=== PATIENT | male | born 1970 | race Caucasian/White ===

== ENCOUNTER 2023-01-06 11:15 | Emergency (ER) | payer OTHER, SELFPAY ==
[2023-01-06 11:23] VITALS: BP 146/90; PULSE 67; RESP 18; TEMP 36.7; O2SAT 99; BMI 24.7
--- NOTE | 2023-01-06 11:28 | DI.RAD.S_ITS ---
PROCEDURE: XR FEMUR LT MIN 2V INDICATIONS: atraumatic pain femur / tib fib TECHNIQUE: 2 views of the femur were acquired. COMPARISON: None. FINDINGS: Bones: No fractures or dislocations. No suspicious bony lesions. Soft tissues: No suspicious soft tissue calcifications or masses. IMPRESSION: No acute fracture. No osseous lesion. If symptoms and/or clinical suspicion for pathology persist, further assessment with repeat, or advanced imaging (e.g., CT, MRI, or bone scan) may be helpful for further assessment. Dictated by: Colton Herrmann M.D. on 01/06/2023 at 12:06 Approved by: Colton Herrmann M.D. on 01/06/2023 at 12:06
--- NOTE | 2023-01-06 11:28 | DI.RAD.S_ITS ---
PROCEDURE: XR TIBIA FIBULA LT 2V INDICATIONS: atraumatic pain femur / tib fib TECHNIQUE: 2 views of the tibia and fibula were acquired. COMPARISON: None. FINDINGS: Bones: No fractures or dislocations. No suspicious bony lesions. Soft tissues: No suspicious soft tissue calcifications or masses. IMPRESSION: No acute fracture. No osseous lesion. If symptoms and/or clinical suspicion for pathology persist, further assessment with repeat, or advanced imaging (e.g., CT, MRI, or bone scan) may be helpful for further assessment. Dictated by: Colton Herrmann M.D. on 01/06/2023 at 12:07 Approved by: Colton Herrmann M.D. on 01/06/2023 at 12:08
[2023-01-06 12:27] VITALS: PULSE 70
--- NOTE | 2023-01-06 13:44 | ED.EXTPRO ---
HPI - Extremity Problem <Magui Bishop PA-C - Last Filed: 01/06/23 13:51> General Chief complaint: Extremity Problem,Nontraumatic Stated complaint: pain in LT leg T-30 Time Seen by Provider: 01/06/23 13:35 Source: patient Mode of arrival: Ambulatory History of Present Illness HPI Narrative: 53-year-old male with past medical history BPH presents to the ED with 6 weeks of left leg pain. Patient denies numbness, tingling, weakness. Patient describes the pain as being in his femur and calf. Patient was seen by his primary care provider, D-dimer was negative. Patient was prescribed pain medication by his PCP, patient does not recall what the medication was, but that the PCP told him that it was the strongest medication she could give him. Patient states that the medication did not help him. Patient also took some Advil without much relief. Patient states he is able to walk, however after walking 1/4 mi, the pain worsens. Patient also has a MRI scheduled for 01/12/2023. Patient denies trauma. Related Data Home Medications Medication Instructions Recorded Confirmed valacyclovir 500 mg tablet 500 mg PO BID ##0 09/05/10 10/16/22 Previous Rx's Medication Instructions Recorded tamsulosin 0.4 mg capsule 0.4 mg PO BEDTIME #90 caps 09/10/22 cyclobenzaprine 10 mg tablet 10 mg PO TID PRN muscle spasm 5 01/06/23 days #15 tabs Allergies Allergy/AdvReac Type Severity Reaction Status Date / Time No Known Drug Allergies Allergy Verified 01/06/23 11:26 Review of Systems <Magui Bishop PA-C - Last Filed: 01/06/23 13:51> Review of Systems ROS Unobtainable: All systems reviewed & are unremarkable except as noted in HPI and below Constitutional Constitutional: Denies chills, Denies fatigue, Denies fever(s), Denies frequent falls, Denies lethargy and Denies weakness Eyes Eyes: Denies change in vision, Denies eye discharge, Denies irritation and Denies loss of vision ENT Ears, Nose, Mouth, and Throat: Denies change in voice, Denies dizziness, Denies neck pain, Denies sore throat and Denies throat swelling Cardiovascular Cardiovascular: Denies chest pain, Denies irregular heart rhythm, Denies lightheadedness, Denies palpitations, Denies dyspnea, Denies dyspnea on exertion and Denies orthopnea Respiratory Respiratory: Denies cough, Denies dyspnea, Denies dyspnea on exertion and Denies wheezing Gastrointestinal Gastrointestinal: Denies abdominal pain, Denies change in bowel habits, Denies diarrhea, Denies nausea and Denies vomiting Genitourinary Genitourinary: Denies hematuria, Denies flank pain, Denies urinary incontinence and Denies urinary urgency Musculoskeletal Musculoskeletal: Denies back pain, Denies muscle weakness, Denies neck pain, Denies numbness and Denies tingling Comments: Left femur and calf pain Integumentary/Breasts Skin/Breast: Denies pruritus, Denies erythema, Denies rash and Denies wounds Neurologic Neurologic: Denies behavioral changes, Denies confusion, Denies dizziness, Denies frequent falls, Denies loss of vision, Denies numbness, Denies tingling and Denies weakness Psychiatric Psychiatric: Denies anxiety, Denies behavioral changes, Denies confusion, Denies depression, Denies homicidal ideation and Denies suicidal ideation Endocrine Endocrine: Denies fatigue, Denies flushing and Denies palpitations Hematologic/Lymphatic Hematologic/Lymphatic: Denies easy bruising Allergic/Immunologic Allergic/Immunologic: Denies urticaria, Denies throat swelling and Denies wheezing Patient History <Magui Bishop PA-C - Last Filed: 01/06/23 13:51> Medical History BPH w urinary obs/LUTS Hematuria Family History Mother Cancer Social History marital status: number of children: 1 Smoking Status: Never smoker Smoking Status: Never smoker alcohol intake frequency: 0-2 drinks per day Substance Use Type: does not use Exam <Magui Bishop PA-C - Last Filed: 01/06/23 13:51> Narrative Exam Narrative: Const General:?cooperative, healthy appearing and comfortable [facility] Head:?normal to inspection Ears:?hearing grossly normal bilaterally Nose:?external nose normal Face and sinus:?normal facial exam and sinuses nontender Mouth:?oral mucosae normal Throat:?posterior oropharynx normal Eyes General:?appearance normal, both eyes and all related structures Neck Neck:?normal visual inspection and no lymphadenopathy noted Resp Effort & Inspection:?normal respiratory effort Auscultation:?clear to auscultation bilaterally Cardio Rate:?regular rate Rhythm:?regular rhythm Musculoskeletal No tenderness to palpation of left leg. No erythema, swelling, deformities. Strength and sensation is intact. Full range of motion. Patient is neurovascularly intact. Neuro General:?patient alert, patient awake and patient oriented x3 Initial Vital Signs Initial Vital Signs: Vital Signs Temperature 98.1 F 01/06/23 11:23 Pulse Rate 67 01/06/23 11:23 Respiratory Rate 18 01/06/23 11:23 Blood Pressure 146/90 H 01/06/23 11:23 Pulse Oximetry 99 01/06/23 11:23 Oxygen Delivery Method Room Air 01/06/23 11:23 <Pamella Smith DO - Last Filed: 01/07/23 07:44> Initial Vital Signs Initial Vital Signs: Vital Signs Temperature 98.1 F 01/06/23 11:23 Pulse Rate 67 01/06/23 11:23 Respiratory Rate 18 01/06/23 11:23 Blood Pressure 146/90 H 01/06/23 11:23 Pulse Oximetry 99 01/06/23 11:23 Oxygen Delivery Method Room Air 01/06/23 11:23 Course <Magui Bishop PA-C - Last Filed: 01/06/23 13:51> Orders Ordered: ED Orders 01/06/23 11:28 XR femur LT min 2V Stat XR tibia fibula LT 2V Stat Vital Signs Vital signs: Vital Signs - 8 hr 01/06/23 11:23 01/06/23 12:27 Temperature 98.1 F Pulse Rate 67 Pulse Rate [Left Dorsalis Pedis] 70 Respiratory Rate 18 Blood Pressure 146/90 H Pulse Oximetry 99 Oxygen Delivery Method Room Air <DO Alton Mensah Last Filed: 01/07/23 07:44> Orders Ordered: ED Orders 01/06/23 11:28 XR femur LT min 2V Stat XR tibia fibula LT 2V Stat Vital Signs Vital signs: Vital Signs - 8 hr 01/06/23 11:23 01/06/23 12:27 Temperature 98.1 F Pulse Rate 67 Pulse Rate [Left Dorsalis Pedis] 70 Respiratory Rate 18 Blood Pressure 146/90 H Pulse Oximetry 99 Oxygen Delivery Method Room Air MDM - Extremity (Nontraumatic) <Magui Bishop PA-C - Last Filed: 01/06/23 13:51> MDM Narrative Medical decision making narrative: 53-year-old male with past medical history BPH presents to the ED with 6 weeks of left leg pain. Concern for fracture/dislocation versus musculoskeletal sprain/strain versus other. Reassuring that recent D-dimer was negative, unlikely DVT. Left leg x-rays obtained with no acute findings. Patient's symptoms are likely due to a musculoskeletal sprain/strain. Will prescribe muscle relaxant to take along with Tylenol or ibuprofen. Patient agrees to follow-up with the MRI and his PCP for further evaluation treatment. ED return precautions were discussed with patient. Patient verbalized understanding. Medical records reviewed: Yes Discharge Plan Departure Patient Disposition: Home Clinical Impression: Leg pain Instructions: DI for Leg Pain Activity Restrictions/Additional Instructions: You were evaluated in the ED today for left leg pain. Your x-rays were normal. It appears that your D-dimer was also negative per your primary care doctor. You may continue to take Tylenol, ibuprofen for your symptoms. You were also being prescribed a muscle relaxant. It appears that you have an MRI scheduled for this coming Friday. Please keep that appointment and follow-up with your PCP as soon as possible. Return to the ED if you experience any numbness, tingling, weakness, worsening symptoms. Prescriptions: New cyclobenzaprine 10 mg tablet 10 mg PO TID PRN (Reason: muscle spasm) 5 Days Qty: 15 0RF No Action valacyclovir 500 MG tablet 500 mg PO BID Qty: 0 tamsulosin 0.4 mg capsule 0.4 mg PO BEDTIME Qty: 90 3RF Referrals: Leigh Baron PA-C [Primary Care Provider] - Stand Alone Forms: Patient Portal/API <Pamella Smith DO - Last Filed: 01/07/23 07:44> Cosign ED Attending [place] Attestation: I was immediately available in the department for consultation. Documentation has been reviewed.
== END 2023-01-06 13:49 | disposition home or self-care (01) ==
PROVIDERS: Emergency Provider Student in an Organized Health Care Education/Training Program; PCP Physician Assistant Medical
DX: M79.605 Pain in left leg (principal)
CPT/HCPCS: 73552; 73590; 99283

== ENCOUNTER → 2023-04-16 11:33 | Outpatient (CLI) | payer OTHER, SELFPAY ==
--- NOTE | 2023-04-16 | DI.MRI.S_ITS ---
PROCEDURE: MR LUMBAR SPINE WO CON INDICATIONS: RADICULOPATHY,LUMBAR REGION TECHNIQUE: Noncontrast sagittal T1 spin echo and T2 fast echo, sagittal STIR, and T2 fast spin echo through the lumbar spine. In cases with scoliosis, additional coronal T2 fast spin echo may be performed. COMPARISON: [facility], RG, CT IVP, 06/24/2022, 10:50. FINDINGS: Image quality: Excellent. Alignment and Curvature: There is normal bony alignment. Bone Marrow: Marrow is of normal overall signal. No acute vertebral body compression fractures. Spinal Cord: Conus medullaris terminates at the L1-L2 level. Visualized cord demonstrates normal signal and size. Paraspinous Soft Tissues: No paravertebral masses. T12-L1: Normal appearance. L1-L2: Normal appearance. L2-L3: Normal appearance. L3-L4: The disc height and disk signal are relatively well-preserved. Mild generalized disc bulge is seen. There is mild right-sided and no left-sided neural foraminal narrowing. No central canal narrowing is seen. L4-L5: Mild loss of disc height is seen. Loss of disc signal is seen. Mild generalized disc bulge is seen. Mild facet joint hypertrophy is seen. Moderate bilateral neural foraminal narrowing is seen. No central canal narrowing is seen. L5-S1: Moderate loss of disc height is seen. Loss of disc signal is seen. Mild generalized disc bulge is seen. There is a superimposed central disc protrusion. Mild facet joint hypertrophy is seen. There is moderate to severe left-sided and moderate right-sided neural foraminal narrowing. Minimal central canal narrowing is seen. IMPRESSION: Multiple levels of lumbar spine degenerative change can be seen, which are worst inferiorly. Dictated by: Aroldo Enamorado M.D. on 04/16/2023 at 16:37 Approved by: Aroldo Enamorado M.D. on 04/16/2023 at 16:40
== END ==
PROVIDERS: PCP Physician Assistant Medical; Referring Provider Physician Assistant Medical; Visit Provider Physician Assistant Medical
DX: M47.26 Other spondylosis with radiculopathy, lumbar region (principal); M47.27 Other spondylosis with radiculopathy, lumbosacral region; N40.1 Benign prostatic hyperplasia with lower urinary tract symptoms; N13.8 Other obstructive and reflux uropathy; R31.9 Hematuria, unspecified
CPT/HCPCS: 51798; 72148; 81002

== ENCOUNTER → 2023-05-22 13:03 | Outpatient (CLI) | payer OTHER, SELFPAY ==
--- NOTE | 2023-05-22 13:07 | DI.RAD.S_ITS ---
PROCEDURE: XR LUMBAR SPINE MIN 4V INDICATIONS: BACK PAIN TECHNIQUE: 5 views of the lumbar spine acquired, including flexion and extension views. COMPARISON: None. FINDINGS: Bones: 5 nonrib-bearing vertebrae are present. There is normal bony alignment. No vertebral body compression fractures. No suspicious bony lesions. Moderate disc height loss at L3-4, L4-5 and L5-S1. Facet arthrosis L3 through S1. Soft tissues: Overlying bowel gas pattern is normal. No suspicious soft tissue calcifications. Flexion/extension: There is normal range of motion, with preserved normal alignment. IMPRESSION: Lower lumbar, moderate degenerative disc disease and facet arthrosis. Dictated by: Durga Davis M.D. on 05/22/2023 at 13:59 Approved by: Durga Davis M.D. on 05/22/2023 at 14:03
== END ==
PROVIDERS: PCP Physician Assistant Medical; Referring Provider Anesthesiology; Visit Provider Anesthesiology
DX: M51.36 Other intervertebral disc degeneration, lumbar region (principal); M51.37 Other intervertebral disc degeneration, lumbosacral region; M47.816 Spondylosis without myelopathy or radiculopathy, lumbar region; M47.817 Spondylosis without myelopathy or radiculopathy, lumbosacral region; M54.9 Dorsalgia, unspecified
CPT/HCPCS: 72110

== ENCOUNTER → 2024-03-17 07:45 | Outpatient (CLI) | payer OTHER, SELFPAY | PROVIDERS: PCP Physician Assistant; Referring Provider Urology; Visit Provider Urology | DX: R97.20 Elevated prostate specific antigen [PSA] (principal); N40.1 Benign prostatic hyperplasia with lower urinary tract symptoms; Z12.5 Encounter for screening for malignant neoplasm of prostate; N13.8 Other obstructive and reflux uropathy | CPT/HCPCS: 36415; 84153 ==